=== PATIENT | female | born 1990 | race Caucasian/White ===

== ENCOUNTER 2017-05-26 23:22 | Day surgery (SDC) | payer BC, OTHER ==
[2017-05-26 23:56] VITALS: TEMP 98.3; BMI 48.2
[2017-05-27] MEDS ORDERED: Metoclopramide HCl 10 MG/2 ML VIAL IVP PRN (00:31)
[2017-05-27 00:42] VITALS: BP 144/67
[2017-05-27] MEDS ORDERED: Lactated Ringer's 500 ML IV SCH (00:45)
[2017-05-27] MEDS ORDERED: diphenhydrAMINE 50 MG/ML VIAL IVP SCH (00:45)
[2017-05-27] MEDS ORDERED: Acetaminophen/Codeine 30-300mg Tablet PO PRN (00:47)
[2017-05-27 01:06] LABS: Bilirubin Negative (Negative); Blood, Urine Negative (Negative); Clarity CLEAR (Clear); Glucose, Urine (Dipstick) Negative (Negative); Leukocyte Negative (Negative); Nitrite Negative (Negative); Protein, Urine (Dipstick) Negative (Neg-Trace); Specific Gravity, Urine 1.013 (1.002-1.036); Urobilinogen 0.2 mg/dL (0.2-1.0); pH, Urine 6.5 (5.0-9.0)
[2017-05-27 01:06] LABS: #Eosinphils 0.1 thou/uL (0.0-0.7); #Lymphocytes 2.3 thou/uL (1.20-3.40); #Monocytes 0.6 thou/uL (0.11-0.59); #Neutrophils 5.2 thou/uL (1.40-6.50); %Basophils 0.5 % (0.0-1.0); %Monocytes 6.9 % (0.0-10.0); %Neutrophils 63.7 % (42.0-75.0); Hemoglobin 10.3 g/dL (12.0-16.0); Mean Corpuscular HGB CONC 33.6 g/dL (32.0-36.0); Mean Corpuscular Hemoglobin 27.1 pg (27.0-31.0); Mean Corpuscular Volume 80.6 fl (81.0-99.0); Mean Platelet Volume 10.2 fL (7.4-10.4); Platelet Count 179 thou/uL (130-400); RBC Distribution Width 12.7 % (11.5-14.5); White Blood Cell (WBC) Count 8.2 thou/uL (4.8-10.8)
[2017-05-27 01:32] LABS: ALT (SGPT) 9 U/L (8-55); AST (SGOT) 10 U/L (5-34); Albumin 3.1 g/dL (3.5-5.0); Alkaline Phosphatase 108 U/L (40-150); Anion Gap 10 mmol/L (10-20); BUN (Urea Nitrogen) 6 mg/dL (7.0-18.7); Bilirubin, Total 0.2 mg/dL (0.2-1.2); Calc. Creatinine Clearance 331 mL/min (70-130); Calcium 9.1 mg/dL (7.8-10.44); Carbon Dioxide 25 mmol/L (22-29); Chloride 103 mmol/L (98-107); Estimated GFR-MDRD Greater than 90; Globulin 3.1 g/dL (2.4-3.5); Glucose 94 mg/dL (70-105); Potassium 3.8 mmol/L (3.5-5.1); Protein, Total 6.2 g/dL (6.0-8.3); Sodium 134 mmol/L (136-145)
--- NOTE | 2017-05-27 07:52 | PRG ---
DATE OF SERVICE: 05/27/2017 PRIMARY OB: Dr. Katelyn Dodson CHIEF COMPLAINT: Headache. HISTORY OF PRESENT ILLNESS: The patient is a 26-year-old female with an intrauterine at 35 weeks and a day who is presenting with a headache that began in the morning that has been unre lieved with 3 doses of Tylenol. The patient reports that she had an elevated blood pressure at her l ast OB visit in the mild range and she reports that she had a repeat elevated pressure at home and is in for evaluation. The patient denies any nausea or vomiting. She denies illness, fever, fall. Th is headache she reports sometimes is throbbing and is located in the front half of her head. The pat ient denies chest pain, shortness of breath. She denies diarrhea or constipation. She denies any ne w rashes. She denies vaginal bleeding or leakage of fluid or urinary complaints such as urgency or d ysuria. PAST MEDICAL HISTORY: Negative. PAST SURGICAL HISTORY: She has had 1 prior for nonreassuring heart tones. SOCIAL HISTORY: Denies drug, alcohol or tobacco use. ALLERGIES: No known drug allergies. MEDICATIONS: She is on vitamins. OB LABS: Blood type is O positive, antibody screen is negative. HIV is nonreactive. RPR is nonreac tive, hepatitis B surface antigen is nonreactive. REVIEW OF SYSTEMS: Per HPI. PHYSICAL EXAMINATION: VITAL SIGNS: Initial blood pressure is 142/94, heart rate of 88, respiratory rate 16, temperature 98 .4. However, over the following 2 hours her blood pressures have remained in the normal range with o nly an isolated elevated blood pressure, again in the mild range systolic. Her pressures have ranged from 97/55 systolic to the 130s primarily 134/65. GENERAL: She appears to be in no acute distress. She is alert and oriented, and cooperative and ple asant to interact with. HEENT: Normocephalic, atraumatic. CHEST: Clear to auscultation bilaterally. HEART: Regular rate and rhythm. ABDOMEN: Soft, nontender. PELVIC: Normal DTRs and nonedematous. CERVICAL EXAM: Has been deferred. heart tracing performed for maternal headache. Baseline is in the 1-teens with moderate long-t erm variability, positive accelerations, no decelerations. Tocometer not showing any contractions. PH lab work is completely within normal limits and no proteinuria. ASSESSMENT AND PLAN: The patient is a 26-year-old female who presented with headaches and a history of elevated pressures. She has had a couple here, but no proteinuria or other laboratory abnormaliti es. The patient has declined any pain medication for treatment for a migraine headache which history is what it sounds like. Fetus is reassuring. The patient has been discharged home. Of note, lisandra willard refused IV placement. Patient will follow up with her primary OB as scheduled.
== END 2017-05-27 02:15 | disposition home or self-care (01) ==
LOC: L&D/OP 23:22
PROVIDERS: ATTEND Student in an Organized Health Care Education/Training Program
DX: O99.89 Other specified diseases and conditions complicating pregnancy, childbirth and the puerperium (principal); R51 Headache; R03.0 Elevated blood-pressure reading, without diagnosis of hypertension; Z79.899 Other long term (current) drug therapy; Z3A.35 35 weeks gestation of pregnancy; Z98.891 History of uterine scar from previous surgery
CPT/HCPCS: 36415; 80053; 81003; 82570; 84156; 85025; 99283; J2765

== ENCOUNTER 2017-06-09 10:15 | Inpatient (IN) | payer BC, OTHER ==
[2017-06-09] MEDS ORDERED: Ondansetron HCl/PF 4 MG/2 ML Vial IVP PRN ×4 (10:54→13:36)
[2017-06-09] MEDS ORDERED: Promethazine HCl 25 MG/ML VIAL IM PRN ×2 (10:54→11:36)
[2017-06-09] MEDS ORDERED: Lactated Ringer's 1,000 ML IV SCH (10:54)
[2017-06-09] MEDS ORDERED: Bicitra 30 ML UDCUP PO SCH (11:15)
[2017-06-09] MEDS ORDERED: CEFAZOLIN/Water 2 GM/20 ML SYRINGE SLOW IVP SCH (11:15)
[2017-06-09 11:24] LABS: Hemoglobin 10.3 g/dL (12.0-16.0); Mean Corpuscular HGB CONC 33.5 g/dL (32.0-36.0); Mean Corpuscular Hemoglobin 26.5 pg (27.0-31.0); Mean Platelet Volume 10.7 fL (7.4-10.4); Platelet Count 182 thou/uL (130-400); RBC Distribution Width 12.8 % (11.5-14.5); Red Blood Cell (RBC) Count 3.87 mill/uL (4.20-5.40); White Blood Cell (WBC) Count 8.1 thou/uL (4.8-10.8)
[2017-06-09] MEDS ORDERED: HYDROmorphone 2 MG/ML VIAL SLOW IVP PRN (11:35)
[2017-06-09] MEDS ORDERED: Meperidine HCl/PF 25 MG/ML VIAL SLOW IVP PRN (11:35)
[2017-06-09] MEDS ORDERED: Promethazine HCl 25 MG SUPP PR PRN (11:36)
[2017-06-09] MEDS ORDERED: Naloxone HCl 0.4 mg/ml Vial IVP PRN ×2 (11:36)
[2017-06-09] MEDS ORDERED: diphenhydrAMINE 50 MG/ML VIAL IVP PRN (11:36)
[2017-06-09] MEDS ORDERED: Eucerin (Mineral Oil/Petrolatum,White) 30 gm Jar TOP PRN (11:36)
[2017-06-09] MEDS ORDERED: Ketorolac Tromethamine 30 MG/ML VIAL IVP PRN (11:36)
[2017-06-09] MEDS ORDERED: Naloxone HCl 0.4 mg/ml Vial IV PRN (11:36)
--- NOTE | 2017-06-09 11:36 | PDOC.LDHP ---
Labor and Delivery H&P Chief complaint: scheduled section HPI: 26yo at 37w0d by LMP with GHTN, A1GDM, morbid obesity and Prior CS x 1, declines TOLAC. No complaints. No PIH sx. Current gestational age (weeks): 37 Due date: 06/30/17 Dating criteria: last menstrual period Grav: 2 Para: 1 Current complications: gestational diabetes, gestational hypertension Abnormal US findings: No Past Medical History: obesity Current medications: pre-shlomo vitamins Previous surgical history: low tranverse CS Allergies/Adverse Reactions: Allergies Allergy/AdvReac Type Severity Reaction Status Date / Time No Known Allergies Allergy Verified 06/09/17 11:25 Social history: none - Physical Exam Vital signs reviewed and normal: yes General: NAD Heart: RRR Lungs: CTAB Abdomen: gravid Extremeties: no edema FHT: category 1 [place] contractions every: none - OB Labs RH: positive Antibody Screen: negative HIV: negative RPR: negative HEPSAg: negative 1 hour GCT: positive 3 hour GTT: positive GBS: negative Rubella: non-immune - Assessment L&D Assessment: scheduled repeat section - Plan Plan: admit to L&D, to OR for section, informed consent obtained, anesthesia consult for pain management -: PIH labs, no sx PIH, BP nl -mild range, monitor for severe features.
[2017-06-09 11:42] LABS: ALT (SGPT) Less than 7 U/L (8-55); AST (SGOT) 9 U/L (5-34); Albumin 3.2 g/dL (3.5-5.0); Alkaline Phosphatase 124 U/L (40-150); Anion Gap 12 mmol/L (10-20); BUN (Urea Nitrogen) 6 mg/dL (7.0-18.7); Bilirubin, Total 0.2 mg/dL (0.2-1.2); Calc. Creatinine Clearance 0 mL/min (70-130); Calcium 8.8 mg/dL (7.8-10.44); Carbon Dioxide 22 mmol/L (22-29); Chloride 105 mmol/L (98-107); Estimated GFR-MDRD Greater than 90; Globulin 2.8 g/dL (2.4-3.5); Glucose 86 mg/dL (70-105); Sodium 135 mmol/L (136-145)
[2017-06-09] MEDS ORDERED: Ketorolac Tromethamine 30 MG/ML VIAL IVP SCH (11:45)
[2017-06-09] MEDS ORDERED: Communication Order-Pharmacy FS SCH (11:45)
[2017-06-09 11:46] VITALS: BMI 48.2
[2017-06-09] MEDS ORDERED: Morphine PF 1 MG/ML SYR ONE (11:52)
[2017-06-09 11:59] LABS: HBSAg Index 0.16 S/CO (0-0.99); Hep B Surf Ag Non-Reactive S/CO (NonReactive)
[2017-06-09] MEDS ORDERED: PHENYLEPHRINE-NS 100 MCG/ML 10 ML SYRINGE ONE ×2 (11:59→14:34)
[2017-06-09] MEDS ORDERED: Dexamethasone 4 mg/ml Vial ONE (11:59)
[2017-06-09] MEDS ORDERED: Oxytocin 10 UNITS/ML VIAL ONE ×2 (11:59→12:52)
[2017-06-09] MEDS ORDERED: Ondansetron HCl/PF 4 MG/2 ML Vial ONE ×2 (11:59→14:34)
[2017-06-09] MEDS ORDERED: Ketorolac Tromethamine 30 MG/ML VIAL ONE ×2 (11:59→14:34)
--- NOTE | 2017-06-09 13:11 | PDOC.OPDEL ---
OB Operative/Delivery Note Delivery Dr/Surgeon: Ivory Assist: Jese Pre-Delivery Diagnosis: scheduled section (GHTN, A1GDM) Procedure/Post Delivery Dx: repeat low transverse CS Weeks gestation: 37 Anesthesia: spinal - Findings A Sex: female Weight: 9 lb - 1 min: 8 - 5 min: 9 - Additional Findings/Plan Placenta delivered: spontaneous findings: low transverse hysterotomy without extension, normal uterus, normal tubes, normal ovaries Estimated blood loss: 1000 Post delivery plan: routine recovery
[2017-06-09] MEDS ORDERED: diphenhydrAMINE 25 MG CAP PO PRN (13:36)
[2017-06-09] MEDS ORDERED: Acetaminophen 325 MG TAB PO PRN (13:36)
[2017-06-09] MEDS ORDERED: Lanolin Ointment 7 GM TUBE TOP PRN (13:36)
[2017-06-09] MEDS ORDERED: Adacel (T-DAP) 0.5 ML VIAL IM ONE (13:36)
[2017-06-09] MEDS ORDERED: Bisacodyl 10 MG SUPP PR PRN (13:36)
[2017-06-09] MEDS ORDERED: Dexamethasone 20 MG/5 ML VIAL ONE (14:34)
[2017-06-09] MEDS: Lactated Ringer's 1,000 ML IV SCH (19:37)
[2017-06-09] MEDS: Docusate Calcium (SURFAK) 240 MG CAP PO SCH (19:56)
[2017-06-09] MEDS: Simethicone Chewable 80 MG TAB PO PRN (19:56)
[2017-06-09 22:53] LABS: Syphilis Antibody INDETERMINATE (Nonreactive); Syphilis Titer Non-Reactive (Negative)
[2017-06-10] MEDS: Ferrous Sulfate 325 MG TAB PO SCH ×3 (01:29→23:21)
[2017-06-10] MEDS: Lactated Ringer's 1,000 ML IV SCH (03:43)
[2017-06-10] MEDS: HYDROcodone/Acetaminophen 5/325 mg Tablet PO PRN ×4 (03:58→22:45)
[2017-06-10] MEDS: Ibuprofen 800 MG TAB PO SCH ×3 (05:37→22:47)
[2017-06-10 06:13] LABS: Mean Corpuscular Hemoglobin 26.5 pg (27.0-31.0); Mean Corpuscular Volume 80.4 fl (81.0-99.0); Mean Platelet Volume 10.5 fL (7.4-10.4); Platelet Count 163 thou/uL (130-400); RBC Distribution Width 12.8 % (11.5-14.5); Red Blood Cell (RBC) Count 3.37 mill/uL (4.20-5.40)
[2017-06-10] MEDS: Prenatal Vitamin 1 TAB PO SCH (08:08)
[2017-06-10] MEDS: Docusate Calcium (SURFAK) 240 MG CAP PO SCH ×2 (08:11→23:20)
--- NOTE | 2017-06-10 09:59 | PDOC.PP ---
Post Progress Note Post Day #: 1 PO intake tolerated: yes Flatus: yes Ambulation: yes Vital Signs (12 hours) Temp Pulse Resp BP 06/10/17 08:20 97.6 F 68 20 100/58 L 06/10/17 07:40 97.6 F 68 20 06/10/17 04:00 97.9 F 73 16 113/50 L 06/09/17 23:30 98.8 F 59 L 16 115/59 L Weight Weight 336 lb - Physical Examination General: NAD Cardiovascular: RRR Respiratory: non-labored breathing Abdominal: no distention, appropriately TTP Fundus firm & at: umb Skin: CS incision dry & intact Neurological: no gross focal deficits Psychiatric: normal affect Result Diagrams: 06/10/17 05:21 06/09/17 11:00 Additional Labs: Post Labs Blood Type O POSITIVE 06/09/17 11:00 Hep Bs Antigen Non-Reactive S/CO (NonReactive) 06/09/17 11:00 (1) Gestational hypertension Code(s): O13.9 - GESTATIONAL HTN W/O SIGNIFICANT PROTEINURIA, UNSP TRIMESTER Status: Acute (2) Gestational diabetes Code(s): O24.419 - GESTATIONAL DIABETES MELLITUS IN , UNSP CONTROL Status: Acute Qualifiers: Gestational diabetes mellitus control: diet-controlled Trimester: third trimester Qualified Code(s): O24.410 - Gestational diabetes mellitus in , diet controlled (3) 37 weeks gestation of Code(s): Z3A.37 - 37 WEEKS GESTATION OF Status: Acute - Assessment/Plan [facility] 37w VSSAF Doing well appropriate postop recovery, routine advances GHTN- BP nl, no sx PIH Rh pos RImm h/o syphilis, s/p treatment 3 years prior. RPR have been reactive and low titer which is appropriate for previously treated primary syphilis. No concern for recurrent infection. Cont postop care.
--- NOTE | 2017-06-10 10:21 | OP ---
DATE OF PROCEDURE: 06/09/2017 PREOPERATIVE DIAGNOSES: 1. Intrauterine at 37 weeks and 0 days. 2. Gestational hypertension. 3. A1 gestational diabetes mellitus. 4. Prior x1, declines trial of labor. POSTOPERATIVE DIAGNOSES: 1. Intrauterine at 37 weeks and 0 days. 2. Gestational hypertension. 3. A1 gestational diabetes mellitus. 4. Prior x1, declines trial of labor. PROCEDURE: Repeat low transverse section via Pfannenstiel skin incision. ANESTHESIA: Spinal. ATTENDING SURGEON: Katelyn Dodson M.D. [employer] SUPERVISOR: Elinor Olson. ESTIMATED BLOOD LOSS: 1 liter. URINE OUTPUT: 50 mL of clear urine. INTRAVENOUS FLUIDS: Two liters crystalloid. FINDINGS: Female infant, cephalic presentation, copious clear amniotic fluid, weighing 9 pounds, Apg ars were pending and taken to the uvaldo on CPAP. Normal uterus, ovaries, and tubes bilaterally. DRAINS: Barrientos catheter. PATHOLOGY: None. COMPLICATIONS: None. OPERATIVE TECHNIQUE: The patient was taken to the operating room where spinal anesthesia was obtaine d without difficulty. The patient was prepped and draped in a sterile fashion in the dorsal supine p osition with a leftward tilt. After ensuring adequacy of anesthesia, a Pfannenstiel skin incision wa s made and carried down to the underlying subcutaneous tissue with the knife, and the fascia was toño ed in the midline with the Bovie and carried laterally with the Escoto scissors. The superior aspect o f the fascia was tented with 2 Kochers and dissected off the rectus with the Mayos. The inferior asp ect of the fascia was tented with 2 Kochers and dissected off the rectus with the Mayos down to the p ubic symphysis. The peritoneum was bluntly entered into. There were omental adhesions to the anteri or abdominal wall and these were taken down with the Bovie ensuring hemostasis. No other adhesions w ere noted and the Daryl O retractor was placed into the abdomen. The bladder was taken down below t he level of the head and at the site of the hysterotomy. The hysterotomy was made and incised in a transverse fashion in the lower uterine segment and extended with the Fuentes maneuver. The 's head was brought to the hysterotomy and delivered with fundal pressure atraumatically followed by the body. The cord was clamped and infant handed to awaiting uvaldo team. Cord blood was obtained and the placenta was allowed to spontaneously deliver. The uterus was exteriorized, cleared of all clots and debris, and the posterior cul-de-sac was lapped out. The uterus was placed back into the abdome n and repaired with a #1 Monocryl in a running locking fashion with excellent hemostasis noted. Irri gation of the pelvis was performed and suctioned again noting hemostasis. The Daryl O retractor was removed. The peritoneum was reapproximated with 2-0 chromic in a running fashion. The muscles were examined and noted to be hemostatic. The fascia was reapproximated with 0 PDS x2 sutures with excel lent reapproximation. The subcutaneous tissue was irrigated and cauterized of any bleeders and reapp roximated with 2 layers of 2-0 plain gut in a running fashion. The skin was closed with 4-0 Monocryl in a subcuticular fashion. Dermabond was applied as well as a pressure dressing. The patient kylee ated the procedure well. Sponge, lap, and needle counts were correct x2. The patient was taken to r ecovery room in stable condition. The patient received Ancef 2 grams prior to the procedure.
[2017-06-10] MEDS ORDERED: Ibuprofen 800 MG TAB PO SCH (14:00)
[2017-06-10] MEDS: Simethicone Chewable 80 MG TAB PO PRN (23:21)
[2017-06-11] MEDS: HYDROcodone/Acetaminophen 5/325 mg Tablet PO PRN ×4 (05:44→20:07)
[2017-06-11] MEDS: Ibuprofen 800 MG TAB PO SCH ×3 (05:44→21:58)
[2017-06-11] MEDS: Lactated Ringer's 1,000 ML IV SCH ×2 (05:55→12:23)
[2017-06-11] MEDS: Ferrous Sulfate 325 MG TAB PO SCH ×2 (09:02→20:07)
[2017-06-11] MEDS: Docusate Calcium (SURFAK) 240 MG CAP PO SCH ×2 (09:02→20:07)
[2017-06-11] MEDS: Simethicone Chewable 80 MG TAB PO PRN ×2 (09:02→20:07)
[2017-06-11] MEDS: Prenatal Vitamin 1 TAB PO SCH (09:02)
--- NOTE | 2017-06-11 11:10 | PDOC.PP ---
Post Progress Note Post Day #: 2 Subjective: pumping, baby in NICU, only concern are abd wall muscles are very sore with activity. PO intake tolerated: yes Flatus: yes Ambulation: yes Vital Signs (12 hours) Temp Pulse Resp BP Pulse Ox 06/11/17 08:00 98.5 F 81 18 06/11/17 07:59 98.5 F 81 18 118/65 95 06/11/17 05:58 98.5 F 79 18 131/59 L Weight Weight 336 lb - Physical Examination General: NAD Respiratory: non-labored breathing Abdominal: no distention, appropriately TTP Fundus firm & at: diff to palpate due to habitus Extremities: negative homans (B) Skin: CS incision dry & intact Neurological: no gross focal deficits Psychiatric: A&Ox3, normal affect Result Diagrams: 06/10/17 05:21 06/09/17 11:00 Additional Labs: Post Labs Blood Type O POSITIVE 06/09/17 11:00 Hep Bs Antigen Non-Reactive S/CO (NonReactive) 06/09/17 11:00 (1) delivery, delivered, current hospitalization Code(s): O82 - ENCOUNTER FOR DELIVERY WITHOUT INDICATION Status: Acute - Assessment/Plan POD 2 doing well sp RCS @ 37 weeks, baby in NICU. Poss DC tomorrow vs POD 4. Appropriate post op tenderness on exam, pt to notify if any changes noted, will continue oral NSAIDS scheduled.
[2017-06-12] MEDS: HYDROcodone/Acetaminophen 5/325 mg Tablet PO PRN ×5 (01:00→21:16)
[2017-06-12] MEDS: Lactated Ringer's 1,000 ML IV SCH ×4 (02:40→19:32)
[2017-06-12] MEDS: Ibuprofen 800 MG TAB PO SCH ×3 (07:05→21:14)
[2017-06-12] MEDS: Prenatal Vitamin 1 TAB PO SCH (08:05)
[2017-06-12] MEDS: Docusate Calcium (SURFAK) 240 MG CAP PO SCH ×2 (08:05→21:14)
[2017-06-12] MEDS: Ferrous Sulfate 325 MG TAB PO SCH ×2 (08:11→21:13)
--- NOTE | 2017-06-12 08:31 | PDOC.PP ---
Post Progress Note Post Day #: 3 PO intake tolerated: yes Flatus: yes Ambulation: yes Vital Signs (12 hours) Temp Pulse Resp BP 06/12/17 00:00 97.7 F 74 20 127/56 L Weight Weight 336 lb - Physical Examination General: NAD Cardiovascular: RRR Respiratory: non-labored breathing Abdominal: no distention, appropriately TTP Fundus firm & at: umb-2 Skin: CS incision dry & intact Neurological: no gross focal deficits Psychiatric: normal affect Result Diagrams: 06/10/17 05:21 06/09/17 11:00 Additional Labs: Post Labs Blood Type O POSITIVE 06/09/17 11:00 Hep Bs Antigen Non-Reactive S/CO (NonReactive) 06/09/17 11:00 (1) Gestational hypertension Code(s): O13.9 - GESTATIONAL HTN W/O SIGNIFICANT PROTEINURIA, UNSP TRIMESTER Status: Acute (2) Gestational diabetes Code(s): O24.419 - GESTATIONAL DIABETES MELLITUS IN , UNSP CONTROL Status: Acute Qualifiers: Gestational diabetes mellitus control: diet-controlled Trimester: third trimester Qualified Code(s): O24.410 - Gestational diabetes mellitus in , diet controlled (3) 37 weeks gestation of Code(s): Z3A.37 - 37 WEEKS GESTATION OF Status: Acute - Assessment/Plan VSSAF Doing well, met all milestones Breastpumping, s/p LC Infant in NICU on O2 support Cont PP care, DC tomorrow
[2017-06-12] MEDS: Simethicone Chewable 80 MG TAB PO PRN (11:08)
[2017-06-13] MEDS: HYDROcodone/Acetaminophen 5/325 mg Tablet PO PRN ×2 (02:40→09:43)
[2017-06-13] MEDS: Lactated Ringer's 1,000 ML IV SCH (04:50)
[2017-06-13] MEDS: Ibuprofen 800 MG TAB PO SCH ×2 (06:03→14:47)
--- NOTE | 2017-06-13 08:00 | PDOC.PP ---
Post Progress Note Post Day #: 4 PO intake tolerated: yes Flatus: yes Ambulation: yes Vital Signs (12 hours) Temp Pulse Resp BP Pulse Ox 06/12/17 21:25 97.9 F 87 18 139/67 98 Weight Weight 336 lb - Physical Examination General: NAD Respiratory: non-labored breathing Abdominal: no distention, appropriately TTP Fundus firm & at: umb-2 Skin: CS incision dry & intact Neurological: no gross focal deficits Psychiatric: normal affect Result Diagrams: 06/10/17 05:21 06/09/17 11:00 Additional Labs: Post Labs Blood Type O POSITIVE 06/09/17 11:00 Hep Bs Antigen Non-Reactive S/CO (NonReactive) 06/09/17 11:00 (1) Gestational hypertension Code(s): O13.9 - GESTATIONAL HTN W/O SIGNIFICANT PROTEINURIA, UNSP TRIMESTER Status: Acute (2) Gestational diabetes Code(s): O24.419 - GESTATIONAL DIABETES MELLITUS IN , UNSP CONTROL Status: Acute Qualifiers: Gestational diabetes mellitus control: diet-controlled Trimester: third trimester Qualified Code(s): O24.410 - Gestational diabetes mellitus in , diet controlled (3) 37 weeks gestation of Code(s): Z3A.37 - 37 WEEKS GESTATION OF Status: Acute - Assessment/Plan POD4 s/p RCS at 37w for GHTN GDM VSSAF BP wnl, no sx PIH FU for GTT Doing well, mild anemia from acute blood loss, cont iron and PNV on DC DC home fu 2 wk
[2017-06-13] MEDS: Docusate Calcium (SURFAK) 240 MG CAP PO SCH (09:42)
[2017-06-13] MEDS: Ferrous Sulfate 325 MG TAB PO SCH (09:42)
[2017-06-13] MEDS: Prenatal Vitamin 1 TAB PO SCH (09:42)
[2017-06-13 12:52] VITALS: BP 137/57; TEMP 98.6
== END 2017-06-13 15:00 | disposition home or self-care (01) | DRG 765 ==
LOC: L&D 10:15 → 3SW 14:53
PROVIDERS: ADMIT Student in an Organized Health Care Education/Training Program; ATTEND Student in an Organized Health Care Education/Training Program
PROC: 10D00Z1 Extraction of Products of Conception, Low, Open Approach (ICD-10-PCS; principal; 2017-06-09)
PROC: 10907ZC Drainage of Amniotic Fluid, Therapeutic from Products of Conception, Via Natural or Artificial Opening (ICD-10-PCS; 2017-06-09)
DX: O34.211 Maternal care for low transverse scar from previous cesarean delivery (principal); D62 Acute posthemorrhagic anemia; E66.01 Morbid (severe) obesity due to excess calories; O24.420 Gestational diabetes mellitus in childbirth, diet controlled; Z68.42 Body mass index [BMI] 45.0-49.9, adult; O99.214 Obesity complicating childbirth; Z37.0 Single live birth; Z3A.37 37 weeks gestation of pregnancy; O13.4 Gestational [pregnancy-induced] hypertension without significant proteinuria, complicating childbirth; O90.81 Anemia of the puerperium
CPT/HCPCS: 36415; 36416; 51702; 80053; 85027; 86593; 86780; 86850; 86900; 86901; 87340; 90715; J1100; J1200; J1885; J2274; J2405; J2590